=== PATIENT | female | born 1950 | race Hispanic/Latino ===

== ENCOUNTER 2023-11-27 08:22 | Day surgery (SDC) | payer OTHER ==
[2023-11-24 11:19] LABS: Hematocrit 37.4 % (36.0-45.0); Lymphocytes % 38.7 % (15.3-44.8); MCV 92.1 fL (80-100); MPV 8.2 fL (7.6-11.3); Platelets 251 thou/uL (152-406); RBC Red Blood Cell Count 4.06 M/uL (3.86-4.86)
[2023-11-24 11:38] LABS: Potassium 3.9 mEq/L (3.5-5.1)
--- NOTE | 2023-11-24 11:38 | RAD REPORT ---
EXAM DESCRIPTION: RAD - Chest Pa And Lat (2 Views) - 11/24/2023 11:29 am CLINICAL HISTORY: Pre op pending hernia repair Chest pain. COMPARISON: Chest Pa And Lat (2 Views) dated 08/09/2019; CHEST PA AND LAT 2 VIEW dated 11/14/2009; [facility] ST PA AND LAT 2 VIEW dated 11/27/2007 TECHNIQUE: PA and lateral views of the chest were obtained. FINDINGS: The lungs are hyperexpanded compatible with COPD. The heart is upper limit of normal in si ze. No fracture or aggressive bony process. IMPRESSION: COPD without acute process identified. The USPSTF recommends annual screening for lung cancer with low-dose CT (LDCT) in adults aged 50 to 8 0 years who have a 20 pack-year smoking history and currently smoke or have quit within the past 15 y ears.
[2023-11-27] MEDS ORDERED: SUCCINYLCHOLINE 20 MG/ML (10 ML) IV ONE (08:27)
[2023-11-27] MEDS ORDERED: LIDOCAINE 2% MPF 5 ML VIAL ONE (08:32)
[2023-11-27] MEDS ORDERED: propofoL 200 MG/20 ML VIAL IV ONE (08:32)
[2023-11-27] MEDS ORDERED: ROCURONIUM 50 MG/5 ML VIAL IV ONE (08:32)
[2023-11-27] MEDS ORDERED: ONDANSETRON 4 MG/2 ML VIAL ONE (08:32)
[2023-11-27] MEDS ORDERED: FENTANYL CITR 100 MCG/2 ML ONE ×2 (08:32→10:01)
[2023-11-27] MEDS: NA CHLORIDE 0.9% 1,000 ML ONE ×2 (08:47→11:55)
[2023-11-27] MEDS: CEFAZOLIN SODIUM 1 GM/VIAL ONE ×2 (09:31)
[2023-11-27] MEDS ORDERED: dexAMETHasone 4 MG/ML VIAL ONE (09:34)
[2023-11-27] MEDS ORDERED: GLYCOPYRROLATE 0.2 MG/ML SYR ONE ×2 (11:13)
[2023-11-27] MEDS ORDERED: NEOSTIGMINE 1 MG/ML -10 ML VIAL ONE (11:13)
[2023-11-27] MEDS ORDERED: KETOROLAC 30 MG/ML INJ ONE (11:13)
--- NOTE | 2023-11-27 11:16 | P.BOP ---
Preoperative diagnosis: Recurrent umbilical hernia with periumbilical drainage Postoperative diagnosis: same, extensive intrabdominal adhesions Primary procedure: 1. Open repair recurrent umbilical hernia laparoscopic assisted Secondary procedure: 2. Laparoscopic lysis of adhesions Other procedure(s): 3. Laparoscopic removal of old periumbilical mesh [employer] Operator: Agata Yepez) Estimated blood loss: <30cc Specimen: amanda main with previous old mesh Findings: recurrent hernia, previous (>20y/o mesh attached draining skin) Anesthesia: General Complications: None Transferred to: Recovery Room Condition: Good
[2023-11-27] MEDS: HYDROMORPHONE HCL 1 MG/ML INJ ONE ×2 (11:38→11:48)
[2023-11-27] MEDS: FENTANYL CITR 100 MCG/2 ML ONE (11:59)
[2023-11-27 12:43] VITALS: O2SAT 98
[2023-11-27] MEDS: HYDROCODONE/APAP 7.5/325 MG TAB ONE (13:00)
[2023-11-27 14:31] VITALS: BP 130/60; TEMP 97
--- NOTE | 2023-11-27 14:39 | EKG ---
Test Date: 2023-11-24 Test Time: 12:04:43 [employer] Principal: JOSE MEASUREMENT RESULTS: Intervals: Rate: 64 HI: 162 QRSD: 92 QT: 402 QTc: 414 [place]: P: 44 HI: 162 QRS: -19 T: 59 INTERPRETIVE STATEMENTS: Normal sinus rhythm Low voltage QRS Borderline ECG Compared to ECG 11/27/2007 18:03:47 Low QRS voltage now present Electronically Signed On 11-27-23 14:30:07 BUSINESS INITIATIVES MANAGER by Fred Caldwell
--- NOTE | 2023-11-27 22:53 | OP ---
Date of Procedure: 11/27/2023 Surgeon: Fito Flores MD Roll Forming Supervisor: WEI De Souza. Diagnosis: Recurrent umbilical hernia with periumbilical drainage. Postoperative Diagnosis: Recurrent umbilical hernia with periumbilical drainage, extensive intraabdo felton adhesions. Procedures: 1.Open repair of recurrent umbilical hernia, laparoscopic assisted. 2.Laparoscopic lysis of adhesions, extensive. 3.Laparoscopic removal of old periumbilical mesh. Estimated Blood Loss: Less than 30 cc. Specimen: Hernia sac and previous old mesh. Findings: The patient has a recurrent hernia, but also the mesh that was placed there more than 20 y ears ago is eroding through the skin causing this chronic drainage the patient is having. Because of that, I considered that contaminated and did not want to replace that mesh, we closed that primarily . Obviously underneath, the patient has extensive intraabdominal adhesions that took about a half th e case just to going through them. We the small bowel and large bowel, and small bowel see ms to be intact with no evidence of fistula. Anesthesia: General plus local. Complications: None. Indication: This is a case of a 73-year-old patient with the findings that I mentioned above. She h as an umbilical hernia repair more than 20 years ago in another institution. We cannot get the repor t. She is not sure if they used mesh or not. She feel the lumps again, tenderness, and also she has some drainage coming from the deep periumbilical region. We afraid that she may have mesh in that a kandi and feels something hard, it may be exposed and if that is the case, we might have to not only to fix recurrent hernia, but also remove the previous mesh. The patient understands the benefits, alte rnatives, and risks of laparoscopic, possible open recurrent umbilical hernia repair with possible me sh removal, possible small resection, possible laparotomy with benefits, alternatives, and risks incl uding, but not limited to infection, bleeding, damage to adjacent structures, anesthesia complication , recurrence, RI, and . She also understands this may not relieve symptoms. She might need mor e than one surgical intervention. She understood, signed a consent. Description Of Procedure: The patient was brought to the operating room, placed in supine position. Anesthesia was done without complication. Abdominal area was prepped and draped in the usual steril e fashion. A time-out was called. I proceeded then to make an incision in the epigastric area. We are going to be away from the area that we believe is going to be full of adhesions. Once we go to t he epigastric area, we opened the fascia under direct visualization, opening the peritoneum under dir ect visualization, put Vicryl #1 inside the fascia. Benny trocar was carefully introduced. No blee ding was obtained. As we suspect, we noticed the patient to have this large amount of adhesions insi de the belly. Without removing those adhesions, we will not be able to proceed with surgery. There was some bowel loops nearby, although we have to find out if those bowel loops are connected to these process or not. In that case, a 5 mm trocar on the right and left side of the abdomen and alternate d between those trocars, we proceeded to do lysis of adhesions that took half the time of the case. We made sure we did that without any enterotomies. The bowel was protected at all time. We did not see any fistulas. When we held that down, making sure that I have complete hemostasis, then I procee ded to go in to take a look at the mesh itself. It was assisted out, assisted open and still attached to the skin and the area that has been draining, so we are going to try and remove that mesh and that part of the skin in 1 unit, which brings us to large fascia defect because that will be inhibiting t his hernia from 20 years ago plus the new hernia she has right at the edge of it. It took some time to get that mesh out of the way, we finally did. Once we have the mesh removed, we make a counter in cision in the periumbilical region since the skin is attached to it, and some of her umbilical skin h ave to be removed with the specimen, obviously that deflated our pneumoperitoneum, so we took that op portunity to then close this primarily. We were able to approximate the fascial edges with at least 6 or 7 [id number] fashion #1 Prolene. This is after fascial edges were cleaned. We did that un gianna direct visualization, repaired that hernia open. After we did all that, I proceeded then to obta in pneumoperitoneum once again and we proved that we have an AirSeal closure. We looked at the area of lysis of adhesions with no bleeding. The mesh was already removed and no enterotomies. At that m oment, I proceeded to remove the trocars under direct vision, deflated the pneumoperitoneum, and then proceeded to close the subcutaneous tissue with 3-0 chromic, and now we have to reconstruct the jaramillo y button since is partially out the skin itself because it was attached to the skin creating that kamari fabrizio between the mesh and the skin, so the belly button is not as deep as before, but at least there i s some indentation created by us. The area was irrigated. An area was approximated and cotton balls placed in that area. All the other incision was closed also. The patient tolerated the procedure w ell. The patient was sent to recovery in stable condition. Disposition: Home. Activity: As tolerated. No heavy lifting. Follow up in my office in 1 week. Call for appointment [phone]. Keep area dry until she sees us again in the office. Abdominal binder while she is out of bed. COLLIN/FABIOLA Voice ID: [id number] Report ID: [id number]
== END 2023-11-27 13:52 | disposition home or self-care (01) ==
LOC: OR 08:22
PROVIDERS: ATTEND Surgery
PROC: 0DNW4ZZ Release Peritoneum, Percutaneous Endoscopic Approach (ICD-10-PCS; 2023-11-27)
PROC: 0WPF4JZ Removal of Synthetic Substitute from Abdominal Wall, Percutaneous Endoscopic Approach (ICD-10-PCS; 2023-11-27)
PROC: 0WQF0ZZ Repair Abdominal Wall, Open Approach (ICD-10-PCS; principal; 2023-11-27 10:00)
DX: K42.9 Umbilical hernia without obstruction or gangrene (principal); K66.0 Peritoneal adhesions (postprocedural) (postinfection); I10 Essential (primary) hypertension; E11.9 Type 2 diabetes mellitus without complications; E66.9 Obesity, unspecified
CPT/HCPCS: 93005; 85025; 80048; 36415; 82947 ×2; 88302; 71046; 49615; 49623; 49329; J2704; J1100; J2710; J2001; J3010 ×3; J1170 ×2; J2405; J7030 ×2; J0690 ×2